=== PATIENT | male | born 2005 ===

== ENCOUNTER 2024-04-26 10:48 | Observation (INO) | payer MEDICAID, SELFPAY ==
--- NOTE | ~2024-04-26 | CT_ITS ---
CT HEAD WITHOUT CONTRAST CLINICAL HISTORY: Status epilepticus TECHNIQUE: CT of the brain was performed from the skull base through the vertex using a routine non-contrast protocol. All CT exams at this location are performed using dose optimization techniques as appropriate to a performed exam including at least one of the following: * Automated exposure control * Adjustment of the mA and/or kV according to patient size (this includes techniques or standardized protocols for targeted exams where dose is matched to indication / reason for exam; i/e/ extremities or head) * Use of iterative reconstructive technique DLP: 714 mGy-cm COMPARISON: None. RESULTS: There is no evidence of acute intracranial hemorrhage, acute large vessel infarct, midline shift or mass effect. The wynne-white differentiation is preserved. The ventricles and sulci are within normal limits in size and configuration. There is no evidence of hydrocephalus. There are no extraaxial collections. Osseous structures are intact. Paranasal sinuses and mastoid air cells are well aerated. CT/CT head/brain wo IV con IMPRESSION: Unremarkable non-contrast CT of the brain.
[2024-04-26] MEDS: LORazepam 2 MG/ML VIAL IVPUSH (10:55)
[2024-04-26 11:00] VITALS: BMI 25.0
[2024-04-26] MEDS: levETIRAcetam in NaCl (iso-os) 1,000 MG/100 ML PIGGYBACK 400 MG IV (11:05)
--- NOTE | 2024-04-26 11:05 | ED.SEIZURE ---
HPI - Seizure General Chief Complaint: Seizure Stated Complaint: seizure Time Seen by Provider: 04/26/24 10:51 Source: patient and family (selvin ) Mode of arrival: ambulatory Limitations: no limitations History of Present Illness ED Provider: Jonnathan VALLEJO HPI Narrative: This is a 18-year-old male history of epilepsy on Keppra and Depakote presenting to the emergency department via private vehicle with tammy, patient was having a seizure when he was brought to the emergency department, evangelista VALLEJO and nursing staff responded outside of the emergency department and brought patient in on the stretcher and gave him 2 mg of IV Ativan with improvement of symptoms. According to patient's fikirke patient had a 2 minute seizure at home yesterday, movement of upper and lower extremities noted at that time. Today he has also had 2 seizures he had 1 prior to coming into the emergency department and then started seizing in the car she reports the last seizure that took place on car was approximately 5 minutes. Patient is not med compliant with his antiepileptics. He did not fall or hit his head at any time. Patient has not been sick recently. Patient smokes marijuana however denies cocaine and other illicit drugs. Does not drink alcohol. Patient postictal after Ativan. Related Data Allergies Allergy/AdvReac Type Severity Reaction Status Date / Time No Known Allergies Allergy Verified 04/26/24 11:01 Review of Systems Review of Systems: Yes all other systems are reviewed and are negative [facility] Past Medical History Attestation statement: The following information was validated with the patient. Source: old records reviewed and nursing notes reviewed Social History Social History Advance Directives: No Advance Directives Information Provided: Yes Physical Exam Vital Signs: Vital Signs: BMI result Body Mass Index 25.0 vss Appearance: Alert.? Oriented X3.? No acute distress.? Postictal initially Head: Normocephalic, atraumatic, no step-offs or deformities Eyes: Pupils equal, round and reactive to light.? ENT: Pharynx normal.? Neck: Normal inspection.? Neck supple.? CVS: Normal heart rate and rhythm.? Pulses normal.? Respiratory: No respiratory distress.? Breath sounds normal.? Abdomen: Soft and nontender.? Skin: Skin warm and dry.? Normal skin color.? Normal skin turgor.? Extremities: No lower extremity edema.? No calf ttp. 5/5 strength to bilateral upper and lower extremities Neuro: Oriented X 3.? No motor deficit.? No sensory deficit. CN 2-12 intact Course Reevaluation(s) Reevaluation #1: Called to the bedside patient having another tonic-clonic seizure. 2 mg of IM Versed ordered. With good response Time: 11:07 Reevaluation #2: CBC unremarkable. Chemistry pending. Time: 11:47 Reevaluation #3: Chemistry with no acute findings needing intervention. Patient's valproic acid level low. CT head brain pending plan is for hospital admission. No seizure-like activity since Versed was given Time: 12:26 Medications Administered Discontinued Medications Generic Name Dose Route Start Last Admin Trade Name Freq PRN Reason Stop Dose Admin Divalproex Sodium 250 mg 04/26/24 11:02 04/26/24 11:41 Divalproex Sodium 250 Mg Tablet.Dr ASHER 04/26/24 11:03 250 mg ONCE ONE Administration Levetiracetam 1,000 mg in 100 mls @ 400 mls/hr 04/26/24 10:53 04/26/24 11:25 Keppra IV 04/26/24 11:07 Infused ONCE ONE Infusion Lorazepam 2 mg 04/26/24 10:54 04/26/24 10:55 Lorazepam 2 Mg/Ml Vial IVPUSH 04/26/24 10:55 2 mg ONCE ONE Administration Midazolam HCl 2 mg 04/26/24 11:09 04/26/24 11:11 Midazolam Hcl/Pf 2 Mg/2 Ml Vial IM 04/26/24 11:10 2 mg ONCE ONE Administration Medical Decision Making Medical Decision Making [facility] Narrative: 1100 18-year-old male presents with seizures today and yesterday non med compliant. On Depakote and Keppra. Physical exam postictal initially. History and physical exam with epilepsy likely secondary to non med compliance. Unlikely intracranial hemorrhage, stroke, posterior stroke. Will rule out metabolic derangements. Plan seizure precautions will keep given benzos as needed will also give Keppra and Depakote. Differential Diagnosis Differential Diagnoses: The differential diagnosis associated with the presentation includes History and physical exam with epilepsy likely secondary to non med compliance. Unlikely intracranial hemorrhage, stroke, posterior stroke. Will rule out metabolic derangements. Admission/Observation Consideration of admission/observation: Escalation of care including admission/observation considered Likely Lab Data MDM Lab Attestation statement: I reviewed the patient's lab results. 04/26/24 11:16 04/26/24 11:16 Labs: Lab Results 04/26/24 Range/Units 11:16 WBC 8.4 (4.8-10.8) X10*3/uL RBC 5.55 (4.60-5.80) X10*6/uL Hgb 15.7 (14.0-18.0) g/dl Hct 46.6 (42.0-52.0) % MCV 84.0 (80.0-98.0) fL MCH 28.3 (27.0-33.0) pg MCHC 33.7 (31.0-36.0) g/dl RDW 13.2 (11.0-16.0) % Plt Count 343 (160-400) X10*3/uL MPV 10.1 (9.4-12.4) fL Immature Gran % (Auto) 0.1 (0.0-0.4) % Neut % (Auto) 36.2 L (45-73) % Lymph % (Auto) 47.6 H (20-40) % [place] % (Auto) 12.2 H (2-11) % Eos % (Auto) 3.2 (0-4) % Baso % (Auto) 0.7 (0-2) % Lymph # (Auto) 4.0 (1.2-4.9) X10*3/uL [place] # (Auto) 1.0 (0.1-1.2) X10*3/uL Eos # (Auto) 0.3 (0.0-0.4) X10*3/uL Baso # (Auto) 0.1 (0.0-0.2) X10*3/uL Abs Immat Gran (auto) 0.01 (0.00-0.03) X10*3/uL Absolute Neuts (auto) 3.0 (2.0-8.3) x10*3/uL Absolute Nucleated RBC 0.000 (0.0-0.012) X10*3/uL Nucleated RBC % (auto) 0.0 (0.0-0.2) /100WBC Sodium 140 (135-145) mmol/L Potassium 4.0 (3.3-5.1) mmol/L Chloride 106 (96-108) mmol/L Carbon Dioxide 18 L (22-29) mmol/L Anion Gap 20 (12-20) BUN 19 H (9-16) mg/dL Creatinine 0.82 (0.5-1.4) mg/dL Estim Creat Clear Calc 126.0 Estimated GFR > 60 Random Glucose 89 (60-115) mg/dL Calcium 9.4 (8.4-10.2) mg/dL Total Bilirubin 0.6 (0.0-1.0) mg/dL Direct Bilirubin 0.2 (0.0-0.5) mg/dL AST 22 (5-37) U/L ALT 13 (0-40) U/L Alkaline Phosphatase 106 (39-117) U/L Total Protein 8.3 H (6.5-8.0) g/dL Albumin 5.0 (3.5-5.0) g/dL Valproic Acid < 12.5 L (50.0-100.0) mcg/mL Independent Interpretation I performed an independent interpretation of an: CT Scan Radiology Impression Discussion of test interpretation with radiology: I have reviewed the radiologist's reading. Independent Historian Clinical information obtained from an independent historian. History obtained from or confirmed by: Spouse (fiance ) Chronic Conditions Patient?s care impacted by: Other (Epilepsy) Critical Care Time Critical Care Time Critical Care Time: Yes Total Critical Care Time: 35 Attestation: I attest to this time spent taking care of the patient, obtaining history, physical, reviewing labs, imaging, speaking to my attending, specialist or hospitalist. Re-evaluating after meds. Discharge Plan Discharge Clinical Impression: Epileptic seizure Patient Disposition: Admitted As Inpatient Print Language: Tamazight
--- NOTE | 2024-04-26 11:09 | PC.NURSE ---
Pt began having another seiure, lasted 1minute and 30 seconds. PA and notified. Second round of IM becki given
[2024-04-26] MEDS: Midazolam HCl/PF 2 MG/2 ML VIAL IM (11:11)
[2024-04-26 11:27] LABS: MANUAL DIFF FLAG NO
[2024-04-26 11:37] LABS: Basophils Absolute Auto 0.1 X10*3/uL (0.0-0.2); Basophils Percent Auto 0.7 % (0-2); Eosinophils Absolute Auto 0.3 X10*3/uL (0.0-0.4); Eosinophils Percent Auto 3.2 % (0-4); Hematocrit 46.6 % (42.0-52.0); Hemoglobin 15.7 g/dl (14.0-18.0); Imm Gran Abs Auto 0.01 X10*3/uL (0.00-0.03); Imm Gran Pct Auto 0.1 % (0.0-0.4); Lymphocytes Percent Auto 47.6 % (20-40); Mean Corpuscular HGB Conc 33.7 g/dl (31.0-36.0); Mean Corpuscular Hemoglobin 28.3 pg (27.0-33.0); Mean Platelet Volume 10.1 fL (9.4-12.4); Monocytes Percent Auto 12.2 % (2-11); Neutrophils Percent Auto 36.2 % (45-73); Platelet Count 343 X10*3/uL (160-400); Red Blood Count 5.55 X10*6/uL (4.60-5.80); Red Cell Distribution Width 13.2 % (11.0-16.0); White Blood Count 8.4 X10*3/uL (4.8-10.8)
[2024-04-26] MEDS: Divalproex Sodium 250 MG TABLET.DR PO (11:41)
[2024-04-26 11:56] LABS: Alanine Aminotransferase 13 U/L (0-40); Alkaline Phosphatase 106 U/L (39-117); Anion Gap 20 (12-20); Aspartate Amino Transferase 22 U/L (5-37); Bilirubin Direct 0.2 mg/dL (0.0-0.5); Bilirubin Total 0.6 mg/dL (0.0-1.0); Blood Urea Nitrogen 19 mg/dL (9-16); Calcium 9.4 mg/dL (8.4-10.2); Carbon Dioxide 18 mmol/L (22-29); Chloride 106 mmol/L (96-108); Estimated Glomerular Filt Rate > 60; Glucose Random 89 mg/dL (60-115); Sodium 140 mmol/L (135-145); Total Protein 8.3 g/dL (6.5-8.0); Valproate < 12.5 mcg/mL (50.0-100.0)
[2024-04-26 12:35] VITALS: BP 114/73; PULSE 71; RESP 19; O2SAT 100
--- NOTE | 2024-04-26 12:47 | PM.IMHP ---
History of Present Illness Date of Service: 04/26/24 Attending physician on admission: Eliud Akbar Chief Complaint: Mutilple seizures at home Pt is a 18-year-old Yi-speaking male with a PMH significant for epilepsy on Keppra and Depakote, ADHD, anxiety, and depression?who presents to the ED with?breakthrough seizures. Pt was brought to the hospital by his fiance who helps supplement HPI. The patient apparently had a 2-minute seizure at home yesterday, and two 1-minute long seizures at home earlier today. Denies fall, headstrike, or tongue bite. Pt then had a longer seizure in the car as he was being brought in to the hospital which was witnessed by ED providers. Was brought in on a stretcher and given 2 mg Ativan IV with improvement of symptoms. Was reportedly postictal in the ED. currently patient reports feeling ?good and relaxed?. Denies any acute medical complaints. No headache or mild pain. Denies chest pain/pressure, palpitations. No shortness a breath or difficulty breathing. Denies fever, chills, nausea, vomiting, abdominal pain. Patient has a long history of medication noncompliance. Reports only intermittently taking his medications, may be 1-2 times per month. States he prefers liquids over pills, as pills are ?disgusting? to swallow. Last seizure was 2-3 months ago. In the ED pt's vitals stable and WNL. Labs were grossly unremarkable and largely WNL. No leukocytosis. Stable H&H. No electrolyte abnormalities. Renal and hepatic function WNL. CT?of head/brain pending. Pt was treated with lorazepam 2 mg IV, midazolam 2 mg IM, Keppra, and Depakote. Pt will be admitted to the hospital under observation for treatment and further evaluation of breakthough seizures secondary to medication non-compliance. Review of Systems Review of Systems: Breakthrough seizures Patient otherwise has no acute medical complaints at this time Denies headache, head strike No mouth pain or tongue bite Denies nausea, vomiting [facility] Medical History (Updated 04/26/24 @ 13:54 by SHAY Morales) Depression Anxiety ADHD Epilepsy Seizures Social History Smoked in Last 30 Days: No Substance Use Type: Marijuana Substance Use Frequency: Weekly Advance Directives: No Advance Directives Information Provided: Yes Meds Allergies Allergy/AdvReac Type Severity Reaction Status Date / Time No Known Allergies Allergy Verified 04/26/24 11:01 Home Medications ?Medication ?Instructions ?Recorded ?Confirmed ?Last Taken ?Type albuterol sulfate 90 mcg/actuation 2 puff inhalation Q6H PRN wheezing 04/26/24 04/26/24 Unknown History aerosol inhaler (Ventolin HFA) divalproex 250 mg tablet,delayed 250 mg PO BID 04/26/24 04/26/24 04/25/24 History release levetiracetam 500 mg tablet 500 mg PO BID 04/26/24 04/26/24 04/25/24 History Physical Exam Vital Signs and Narrative: Vital Signs: Last Vital Signs Pulse 71 04/26/24 12:35 Resp 19 04/26/24 12:35 BP 114/73 04/26/24 12:35 Pulse Ox 100 04/26/24 12:35 O2 Del Method Room Air 04/26/24 12:35 BMI result Body Mass Index 25.0 Constitutional: Alert, in no acute distress. Mental Status: Oriented to person, place and time. Eyes: Pupils are equal, round, and reactive to light. Ear, Nose, and Throat: Oropharynx clear, mucous membranes moist, no evidence of mouth or tongue bite. Ears and nose without deformities. Trachea midline. Respiratory: Clear to auscultation bilaterally. No wheezing, rales, or rhonchi. Cardiovascular: S1, S2 regular. No murmurs, rubs, or gallops. Gastrointestinal: Abdomen soft, non-tender, non-distended. Normal bowel sounds. Neurologic: Cranial nerves II-XII are grossly intact bilaterally. No focal neurological deficits. Moves all extremities spontaneously. Skin: Warm, dry. Extremities: No edema. Psychiatric: Normal mood and affect. Results Labs 04/26/24 11:16 04/26/24 11:16 Labs: Laboratory Results - last 24 hr 04/26/24 11:16 MCV 84.0 MCH 28.3 MCHC 33.7 RDW 13.2 Plt Count 343 MPV 10.1 Immature Gran % (Auto) 0.1 Neut % (Auto) 36.2 L Lymph % (Auto) 47.6 H [place] % (Auto) 12.2 H Eos % (Auto) 3.2 Baso % (Auto) 0.7 Lymph # (Auto) 4.0 [place] # (Auto) 1.0 Eos # (Auto) 0.3 Baso # (Auto) 0.1 Abs Immat Gran (auto) 0.01 Absolute Neuts (auto) 3.0 Absolute Nucleated RBC 0.000 Nucleated RBC % (auto) 0.0 Anion Gap 20 Estim Creat Clear Calc 126.0 Estimated GFR > 60 Random Glucose 89 Calcium 9.4 Total Bilirubin 0.6 Direct Bilirubin 0.2 AST 22 ALT 13 Alkaline Phosphatase 106 Total Protein 8.3 H Albumin 5.0 Valproic Acid < 12.5 L Assessment and Plan (1) Breakthrough seizure: Status: Acute Plan Pt is a 18-year-old Yi-speaking male with a PMH significant for epilepsy on Keppra and Depakote, ADHD, anxiety, and depression?who presents to the ED with?breakthrough seizures. Pt will be admitted to the hospital under observation for treatment and further evaluation of breakthough seizures secondary to medication non-compliance. Breakthrough seizure Patient with 1 seizure yesterday, 3 today First 3 seizures have been 1-2 minutes long with last one around five minutes Secondary to medication noncompliance: pt prefers liquid to pills, reports taking home meds only 1-2 times each month Was given lorazepam, midazolam in the ED Valproic acid levels undetectable, levetiracetam levels pending Continue Keppra, and Depakote Consider changing home meds to Keppra oral suspension 500 mg p.o. b.i.d. and Depakote Sprinkles 250 mg p.o. b.i.d. Seizure precautions Monitor on telemetry Asthma Not in acute exacerbation Continue home inhaler ADHD Not on home meds Anxiety/depression Not on home meds Full Code Attending:? DVT Prophylaxis: Lovenox Patient will be admitted to the hospital under observation for treatment and further evaluation of breakthrough seizures secondary to medication noncompliance. Given increasing frequency and duration of seizures, patient will require hospitalization for close monitoring. Quality Stroke Does the patient have a stroke diagnosis?: No VTE Prior VTE?: No VTE Risk Level:: Medical - moderate - high VTE Device Contraindication: Treatment Not Indicated VTE Drug Contraindication: N/A - Med Ordered
--- NOTE | 2024-04-26 13:30 | PHA.MEDREC ---
Pharmacy Consult ? Medication Reconciliation Pharmacy has completed the medication reconciliation.
--- NOTE | 2024-04-26 14:43 | P.DS_ITS ---
DS: Providers Provider Date of Service: 04/26/24 Date of admission: 04/26/24 13:19 Primary care physician: Unknown Physician DS: Diagnosis Discharge Diagnosis (1) Breakthrough seizure: Status: Acute DS: Summary Hospital Course Hospital Course: HPI from admission: Pt is a 18-year-old Palestinian-speaking male with a PMH significant for epilepsy on Keppra and Depakote, ADHD, anxiety, and depression?who presents to the ED with?breakthrough seizures. Pt was brought to the hospital by his fiance who helps supplement HPI. The patient apparently had a 2-minute seizure at home yesterday, and two 1-minute long seizures at home earlier today. Denies fall, headstrike, or tongue bite. Pt then had a longer seizure in the car as he was being brought in to the hospital which was witnessed by ED providers. Was brought in on a stretcher and given 2 mg Ativan IV with improvement of symptoms. Was reportedly postictal in the ED. currently patient reports feeling ?good and relaxed?. Denies any acute medical complaints. No headache or mild pain. Denies chest pain/pressure, palpitations. No shortness a breath or difficulty breathing. Denies fever, chills, nausea, vomiting, abdominal pain. Patient has a long history of medication noncompliance. Reports only intermittently taking his medications, may be 1-2 times per month. States he prefers liquids over pills, as pills are ?disgusting? to swallow. Last seizure was 2-3 months ago. In the ED pt's vitals stable and WNL. Labs were grossly unremarkable and largely WNL. No leukocytosis. Stable H&H. No electrolyte abnormalities. Renal and hepatic function WNL. CT?of head/brain pending. Pt was treated with lorazepam 2 mg IV, midazolam 2 mg IM, Keppra, and Depakote. Pt will be admitted to the hospital under observation for treatment and further evaluation of breakthough seizures secondary to medication non-compliance. Patient was admitted to the hospital under observation for less than 15 minutes before requesting to leave AMA. Spoke to patient with his fiancee; [employer] faculty member services utilized. Patient reports feels fine and wants to go home. Promises to take his home medications as prescribed. Patient was made aware of the dangers of leaving AMA, including repeated breakthrough seizures with permanent brain damage, but patient still elected to leave AMA. Home medications will be changed to sprinkles and oral suspension in the hopes pt will be more medication compliant. Status at Discharge Functional status at discharge: independent ambulation Time Attestation Discharge Coordination Time (in mins): 30 minutes Quality: Safe Use of Opioids Does Pt have an Active Cancer Diagnosis on the Problem List?: No Quality: Stroke Does the patient have a stroke diagnosis?: No Physical Exam Vital Signs: Vital Signs: Last Vital Signs Pulse 71 04/26/24 12:35 Resp 19 04/26/24 12:35 BP 114/73 04/26/24 12:35 Pulse Ox 100 04/26/24 12:35 O2 Del Method Room Air 04/26/24 12:35 BMI result Body Mass Index 25.0 DS: Data Data Completed and Pending Labs on day of discharge: Laboratory Results - last 24 hr 04/26/24 11:16 WBC 8.4 RBC 5.55 Hgb 15.7 Hct 46.6 MCV 84.0 MCH 28.3 MCHC 33.7 RDW 13.2 Plt Count 343 MPV 10.1 Immature Gran % (Auto) 0.1 Neut % (Auto) 36.2 L Lymph % (Auto) 47.6 H [place] % (Auto) 12.2 H Eos % (Auto) 3.2 Baso % (Auto) 0.7 Lymph # (Auto) 4.0 [place] # (Auto) 1.0 Eos # (Auto) 0.3 Baso # (Auto) 0.1 Abs Immat Gran (auto) 0.01 Absolute Neuts (auto) 3.0 Absolute Nucleated RBC 0.000 Nucleated RBC % (auto) 0.0 Sodium 140 Potassium 4.0 Chloride 106 Carbon Dioxide 18 L Anion Gap 20 BUN 19 H Creatinine 0.82 Estim Creat Clear Calc 126.0 Estimated GFR > 60 Random Glucose 89 Calcium 9.4 Total Bilirubin 0.6 Direct Bilirubin 0.2 AST 22 ALT 13 Alkaline Phosphatase 106 Total Creatine Kinase 345 H Total Protein 8.3 H Albumin 5.0 Valproic Acid < 12.5 L Discharge Plan Discharge Patient Disposition: Left Against Medical Advice Discharge Diagnosis: Breakthrough Seizure Referrals: Physician,Unknown J [Primary Care Provider] - 1 Week Discharge Medications: New divalproex [Depakote Sprinkles] 125 mg capsule, delayed rel sprinkle 250 mg PO BID Qty: 180 0RF levetiracetam [Keppra] 100 mg/mL solution 500 mg PO BID Qty: 473 0RF Continued albuterol sulfate [Ventolin HFA] 90 mcg/actuation HFA aerosol inhaler 2 puff inhalation Q6H PRN (Reason: wheezing) Discontinued divalproex 250 mg tablet,delayed release (DR/EC) 250 mg PO BID levetiracetam 500 mg tablet 500 mg PO BID Discharge Orders: Discharge Order (Routine); Ordered 04/26/24 Ordered By: Gopal Kelley Print Language: Palestinian Care Plan Goals: Depakote capsule will be changed to Depakote Sprinkles Keppra capsule will be changed to Keppra oral suspension Take new prescriptions as prescribed Do not miss any doses Health Concerns: Concern for repeat breakthrough seizures Return to ED for any breakthrough seizures Plan of Treatment: Take new medications as prescribed Follow up with PCP in 2 weeks Assessment: See discharge summary Discharge Date/Time: 04/26/24 15:18
[2024-04-28 06:34] LABS: Glucose, Whole Blood 83 mg/dL (60-115)
[2024-04-29 19:23] LABS: Levetiracetam Keppra 31.8 mcg/mL (6.0-46.0)
== END 2024-04-26 15:18 | disposition left against medical advice (07) ==
LOC: HO.ED 12:26 → HO.EDOVER 13:30
PROVIDERS: Physician Assistant; Admitting Provider Student in an Organized Health Care Education/Training Program; Emergency Provider Emergency Medicine Emergency Medical Services; Visit Provider Family Medicine
DX: G40.909 Epilepsy, unspecified, not intractable, without status epilepticus (principal); F41.9 Anxiety disorder, unspecified; F90.9 Attention-deficit hyperactivity disorder, unspecified type; Z53.29 Procedure and treatment not carried out because of patient's decision for other reasons
CPT/HCPCS: 36415; 70450; 80048; 80076; 80164; 80177; 82550; 82947; 85025; 96365; 96375; 99222; 99284; J1953; J2060; J2250

== ENCOUNTER → 2024-04-26 13:19 | Outpatient (BNV) | payer MEDICAID, SELFPAY | PROVIDERS: Admitting Provider Student in an Organized Health Care Education/Training Program; Emergency Provider Emergency Medicine Emergency Medical Services; Visit Provider Student in an Organized Health Care Education/Training Program | DX: G40.919 Epilepsy, unspecified, intractable, without status epilepticus (principal) | CPT/HCPCS: 99222; 99499 ==

== ENCOUNTER 2024-05-28 09:42 | Emergency (ER) | payer MEDICAID, SELFPAY ==
--- NOTE | ~2024-05-28 | XR_ITS ---
EXAMINATION: XR CHEST CLINICAL INFORMATION: Cough and chest pain. COMPARISON: None available. TECHNIQUE: 2 views of the chest were obtained. FINDINGS: The lungs are well expanded. No focal consolidation. No pleural effusion. Cardiac silhouette is within normal limits. XR/XR chest 2V IMPRESSION: No acute abnormality.
[2024-05-28 09:59] VITALS: BP 121/70; PULSE 61; RESP 17; TEMP 36.7; O2SAT 100; BMI 23.8
--- NOTE | 2024-05-28 10:09 | ED_ITS ---
HPI - General Adult General Chief complaint: Upper Respiratory Symptoms Stated complaint: congested Time Seen by Provider: 05/28/24 10:08 Source: patient and environmental scientist (all interactions with this patient were facilitated with an [facility] [place] Mode of arrival: ambulatory Limitations: language barrier (all interactions with this patient were facilitated with an [facility] [place] History of Present Illness ED Provider: Ashlyn Bean PA-C HPI narrative: 18 year old male with PMH of epilepsy and asthma presents today with 1 day of body aches, headache, congestion and a non-productive cough. States that symptoms started yesterday and they have been getting worse over the last day. Has taken DayQuil and NyQuil without any symptoms relief. Endorses headaches, fevers (subjective, not taken at home), muscle pain, nasal congestion, difficulty breathing from his nose, non-productive cough, nasal discharge that is yellowish/green, sore throat, joint pain, abdominal soreness. Denies chest pain, shortness of breath, nausea, vomiting, diarrhea, difficulty with urinating/bowel movements, no pain with urination, difficulty swallowing, hoarseness of breath. States he has no sick contacts, lives in his house with his family, no recent travel. Onset (ago): day(s) (1) Quality: aching (Muscle aching throughout body) Pain Consistency: constant Relieving factors: medication and rest Exacerbating factors: movement Associated symptoms: fever/chills and headaches Treatments prior to arrival: other (DayQuil and NyQuil) Related Data Home Medications ?Medication ?Instructions ?Recorded ?Confirmed albuterol sulfate 90 mcg/actuation 2 puff inhalation Q6H PRN wheezing 04/26/24 04/26/24 aerosol inhaler (Ventolin HFA) divalproex 250 mg tablet,delayed 250 mg PO BID 04/26/24 04/26/24 release levetiracetam 500 mg tablet 500 mg PO BID 04/26/24 04/26/24 Previous Rx's ?Medication ?Instructions ?Recorded divalproex 125 mg capsule,delayed 250 mg (2 x 125 mg) PO BID #180 04/26/24 release sprinkle (Depakote caps Sprinkles) levetiracetam 100 mg/mL oral 500 mg (5 mL) PO BID #473 mL 04/26/24 solution (Keppra) amoxicillin 400 mg/5 mL oral 500 mg (6.25 mL) PO BID 10 days 05/28/24 suspension #125 mL Allergies Allergy/AdvReac Type Severity Reaction Status Date / Time No Known Allergies Allergy Verified 05/28/24 10:04 Review of Systems Review of Systems: Yes all other systems are reviewed and are negative Constitutional: Constitutional: Reports body ache(s), Reports chills, Reports fatigue, Reports fever(s) (subjective) and Reports headache(s) Eyes: Eyes: Reports no additional eye complaints, Denies blurry vision, Denies change in vision, Denies diplopia, Denies eye discharge, Denies loss of vision and Denies eye pain ENT: Reports dry mouth, Reports headache(s), Reports nasal congestion, Reports nasal discharge and Reports sore throat Cardiovascular: Cardiovascular: Reports no additional cardiovascular complaints, Denies chest pain, Denies lightheadedness, Denies Loss of Co nsciousness and Denies dyspnea Respiratory: Respiratory: Reports cough and Denies dyspnea Gastrointestinal: Gastrointestinal: Reports no additional gastrointestinal complaints, Denies abdominal pain, Denies melena, Denies hematochezia, Denies change in bowel habits and Denies change in stool character Genitourinary: Genitourinary: Reports no additional male genitourinary complaints Musculoskeletal: Musculoskeletal: Reports myalgias and Reports arthralgias Neurologic: Reports headache(s) and Denies loss of vision Psychiatric: Psychiatric: Reports no additional psychiatric complaints Endocrine: Endocrine: Reports fatigue Hematologic/Lymphatic: Hematologic/Lymphatic: Reports no additional hematologic/lymphatic complaints Allergic/Immunologic: Allergic/Immunologic: Reports no additional allergic/immunologic complaints [facility] Past Medical History Attestation statement: The following information was validated with the patient. Source: old records reviewed and nursing notes reviewed Medical History Depression Anxiety ADHD Epilepsy Seizures Social History Social History Substance Use Type: Marijuana Advance Directives: No Advance Directives Information Provided: No Physical Exam ED Vital Signs: Vital Signs - 24 hr 05/28/24 09:59 05/28/24 11:35 05/28/24 11:39 Temperature 98.0 F 98.9 F 98.9 F Pulse Rate 61 62 62 Respiratory Rate 17 20 20 Blood Pressure 121/70 126/72 126/72 Pulse Oximetry 100 95 95 Oxygen Delivery Method Room Air Room Air Room Air BMI result Body Mass Index 23.8 Const General: cooperative, healthy appearing, comfortable and tired appearing Nutritional Appearance: average body habitus and well nourished Orientation/consciousness: patient oriented x3 Limitations: language barrier (Maltese) HENMT Head: Yes normal to inspection Ears: hearing grossly normal bilaterally and external ears normal General nose exam: Normal external nose present, Normal nares present and Nasal discharge present Face and sinus: Yes normal facial exam Mouth: Normal oral and palatal mucosa present, lip normal, tongue normal, moist mucous membranes and no audible dysphonia Teeth and gingiva: dentition normal and gingiva normal Throat: Yes posterior oropharynx normal, Yes tonsils normal, Yes uvula midline and Yes other (slight erythema in posterior throat ) Eyes General: appearance normal, both eyes and all related structures Periorbital: periorbital findings normal Eyelids: Yes eyelids normal Conjunctivae: conjunctivae normal Pupils: Equal, round and reactive pupils present EOM: EOMs intact bilaterally Neck Neck: Yes normal visual inspection, Yes full ROM and Yes no lymphadenopathy Chest Chest palpation & inspection: normal inspection of the chest Resp Effort & Inspection: normal respiratory effort, able to speak in complete sentences and Actively coughing Auscultation: clear to auscultation bilaterally Cardio Jugular venous distension: no JVD Palpation: normal PMI Rate: regular rate Rhythm: regular rhythm Heart sounds: S1 normal heart sound present and S2 normal heart sound present GI Inspection: Yes normal to inspection Palpation (GI): Soft to palpation and nontender Auscultation: normal bowel sounds Skin General skin exam: no rashes or lesions noted Lesions: no lesions Rashes: no rashes Trauma: no lacerations or abrasions Wounds: no wounds Hair: normal Nails: normal Neuro General: patient oriented x3 Cranial nerves: Yes Equal, round and reactive pupils present Cognition (Neuro): normal cognition Extrem General: Yes normal to inspection Psych Appearance: grossly normal Mental Status: mental status grossly normal Speech and movement: Normal speech and movement present Affect: normal affect Attitude: cooperative Thought process: Normal thought process present Thought content: Normal thought content present Insight: Good insight present (Psych) Judgement: Good judgement present (Psych) Medical Decision Making Medical Decision Making MDM Narrative: 18 year old male with PMH of epilepsy and asthma presents today with 1 day of body aches, headache, congestion and a non-productive cough. Patient has no sick contacts and does not know anyone sick. Lung exam and auscultation sounded clear with no rhonchi, wheezing, or decreased lung sounds, no difficulty breathing or shortness of breath making pneumonia less likely. Patient is having sore throat and pain with swallowing, and a viral panel and strep throat was ordered and obtained. Tested positive for Strep throat, patient was educated on antibiotic usage and supportive care including fluids and Tylenol/NSAID usage. Tested negative for other viral illnesses. Differential Diagnosis Differential Diagnoses: The differential diagnosis associated with the presentation includes Covid, influenza, RSV, viral illness, pneumonia, Acute sinusitis Admission/Observation Consideration of admission/observation: Escalation of care including admission/observation considered Patient would have been admitted to the hospital had his work up had any findings where hospital admission was appropriate and his clinical presentation warranted hospital admission. Lab Data [facility] Lab Attestation statement: I reviewed the patient's lab results. My interpretation of these results are in the [facility] Rationale portion of this note. Labs: Lab Results 05/28/24 Range/Units 10:39 Influenza Type A (PCR) NEGATIVE (Negative) Influenza Type B (PCR) NEGATIVE (Negative) RSV RNA Qual (PCR) NEGATIVE (Negative) SARS-CoV-2 RNA (RT-PCR) NEGATIVE (Negative) S. pyogenes GrpA JELANI Positive A (Negative) Independent Interpretation I performed an independent interpretation of an: Plain X-Ray Interpretation: My interpretation is in agreement with the radiologist's impression of this imaging study. ---- EXAMINATION: XR CHEST CLINICAL INFORMATION: Cough and chest pain. COMPARISON: None available. TECHNIQUE: 2 views of the chest were obtained. FINDINGS: The lungs are well expanded. No focal consolidation. No pleural effusion. Cardiac silhouette is within normal limits. XR/XR chest 2V IMPRESSION: No acute abnormality. Dictated By: Imelda Hernandez MD Signed By: Electronically signed by Imelda Hernandez MD 05/28/24 1211 Radiology Impression Discussion of test interpretation with radiology: I have reviewed the radiologist's reading. Prescription Management I considered prescription management with: Antibiotic (patient prescribed an antibiotic for strep pharyngitis) Discharge Plan Discharge Clinical Impression: Strep pharyngitis Patient Disposition: Home, Self-Care Instructions: Strep Throat (DC) Additional Instructions: Follow up with your primary care provider. Return to the emergency department immediately if your symptoms worsen or if you develop any dizziness, shortness of breath, difficulty breathing, chest pain, blurry vision, loss of vision, nausea, vomiting, abdominal pain, fever, chills, back pain, or any other complaints. Afua?seguimiento?con felipe m?dico de atenci?n primaria. Acuda inmediatamente al servicio de urgencias si manuel s?ntomas empeoran o si presenta falta de aliento, dificulta para respirar, dolor tor?cico, mareos, aturdimiento, dolor de espalda, dolor abdominal, fiebre, escalofr?os o cualquier otro s?ntoma. Prescriptions: New amoxicillin 400 mg/5 mL suspension for reconstitution 500 mg PO BID 10 Days Qty: 125 0RF No Action divalproex 250 mg tablet,delayed release (DR/EC) 250 mg PO BID levetiracetam 500 mg tablet 500 mg PO BID albuterol sulfate [Ventolin HFA] 90 mcg/actuation HFA aerosol inhaler 2 puff inhalation Q6H PRN (Reason: wheezing) divalproex [Depakote Sprinkles] 125 mg capsule, delayed rel sprinkle 250 mg PO BID Qty: 180 0RF levetiracetam [Keppra] 100 mg/mL solution 500 mg PO BID Qty: 473 0RF Ref[place]: [facility] [place]] [facility] [place] [facility]] (Call to establish and follow up with a primary care provider. If you already have a primary care provider, please follow up with them.) [facility] [place] [facility]] Stand Alone Forms: Work/School Release Interventions: ED Discharge Assessment Last Done: 05/28/24 11:39 Discharge Date/Time: 05/28/24 11:41 Print Language: Maltese
[2024-05-28 11:01] LABS: IDNOW Serial# 08D9AD1C; Strep A Nucleic Acid Positive (Negative)
[2024-05-28 11:22] LABS: Influenza A PCR NEGATIVE (Negative); Influenza B PCR NEGATIVE (Negative); Resp Syncy Virus RNA Qual PCR NEGATIVE (Negative); SARS COV2 PCR INHOUSE NEGATIVE (Negative)
[2024-05-28 11:35] VITALS: BP 126/72; PULSE 62; RESP 20; TEMP 37.2; O2SAT 95
[2024-05-28 11:39] VITALS: BP 126/72; PULSE 62; RESP 20; TEMP 37.2; O2SAT 95
== END 2024-05-28 11:41 | disposition home or self-care (01) ==
PROVIDERS: Emergency Provider Emergency Medicine
DX: J02.0 Streptococcal pharyngitis (principal); M79.10 Myalgia, unspecified site; R05.9 Cough, unspecified; R51.9 Headache, unspecified; R50.9 Fever, unspecified; Z03.818 Encounter for observation for suspected exposure to other biological agents ruled out; Z79.899 Other long term (current) drug therapy
CPT/HCPCS: 0241U; 71046; 87651; 99282; 99283